=== PATIENT | female | born 2000 | race Caucasian/White ===

== ENCOUNTER 2021-05-07 08:58 | Emergency (ER) | payer OTHER ==
[2021-05-07 10:09] LABS: Absolute Lymphocytes (CBC) 2.6 K/uL (0.7-4.9); Basophils % 0.5 % (0-1.3); Hematocrit 39.7 % (36.0-45.0); Lymphocytes % 21.1 % (15.3-44.8); MPV 8.7 fL (7.6-11.3); RBC Red Blood Cell Count 4.62 M/uL (3.86-4.86)
[2021-05-07 10:14] LABS: Protime INR 1.06
[2021-05-07 10:20] LABS: ALT/SGPT 33 U/L (12-78); AST/SGOT 14 U/L (15-37); Albumin 4.2 g/dL (3.4-5.0); Alkaline Phosphatase 80 U/L (45-117); BUN Blood Urea Nitrogen 10 mg/dL (7-18); Bicarbonate 26 mmol/L (21-32); Bilirubin Direct 0.1 mg/dL (0-0.2); Bilirubin Total 0.4 mg/dL (0.2-1.0); Glucose Level 110 mg/dL (74-106); Potassium 4.1 mmol/L (3.5-5.1); Sodium Level 139 mmol/L (136-145)
[2021-05-07 11:52] LABS: Urine Blood 3+ (Negative); Urine Glucose Negative (Negative); Urine Protein Negative (Negative)
[2021-05-07 12:10] LABS: Barbiturates NEGATIVE (NEGATIVE); Benzodiazepines NEGATIVE (NEGATIVE); Cocaine NEGATIVE (NEGATIVE); METHAMPHETAM NEGATIVE (NEGATIVE); Methadone NEGATIVE (NEGATIVE); Opiates NEGATIVE (NEGATIVE); Phencyclidine NEGATIVE (NEGATIVE); THC Cannibis NEGATIVE (NEGATIVE)
--- NOTE | 2021-05-07 14:31 | ER ---
Nurse's Notes [facility] Name: Taya Abel Age: 20 yrs Sex: Female : 2000 Arrival Date: 05/07/2021 Time: 08:59 Bed 15 Private MD: Alec Dimas E Diagnosis: Mental disorder, not otherwise specified-psychosis Presentation: 05/07 09:24 Chief complaint: Patient states: Sent by Dr. Connolly, Psychiatrist for further evaluation of ss erratic behavior. Mother reports patient has been exhibiting odd behaviors such as hiding in closets and pacing for the past two weeks and states that medication is not working. Denies SI/HI. Coronavirus screen: Client denies travel out of the [place] in the last 14 days. Ebola Screen: Patient denies exposure to infectious person. Patient denies travel to an Ebola-affected area in the 21 days before illness onset. Initial Sepsis Screen: Does the patient meet any 2 criteria? No. Patient's initial sepsis screen is negative. Does the patient have a suspected source of infection? No. Patient's initial sepsis screen is negative. Risk Assessment: Do you want to hurt yourself or someone else? Patient reports no desire to harm self or others. Onset of symptoms is unknown. 09:24 Method Of Arrival: Ambulatory ss 09:24 Acuity: FRANCISCO J 2 ss Triage Assessment: 09:30 General: Appears distressed, obese, Behavior is cooperative, flat. Pain: Denies pain. bp EENT: No deficits noted. Neuro: Level of Consciousness is awake, alert, obeys commands, Oriented to PT NOT ANSWERING. Cardiovascular: Rhythm is sinus rhythm. Respiratory: No deficits noted. GI: No signs and/or symptoms were reported involving the gastrointestinal system. : No signs and/or symptoms were reported regarding the genitourinary system. Derm: No deficits noted. Musculoskeletal: No deficits noted. Historical: - Allergies: :33 NKDA; ss - Home Meds: :33 lithium carbonate 150 mg Oral cap 2 caps 3 times per day [Active]; atorvastatin oral ss [Active]; Seroquel Oral [Active]; Lisinopril Oral [Active]; - PMHx: 09:33 Bipolar disorder; ss - PSHx: 09:33 None; ss - Immunization history:: Adult Immunizations up to date. - Social history:: Smoking status: Patient denies any tobacco usage or history of. Screenin:05 Abuse screen: Denies threats or abuse. Denies injuries from another. Nutritional bp screening: No deficits noted. Tuberculosis screening: No symptoms or risk factors identified. Fall Risk None identified. Assessment: 09:30 General: SEE TRIAGE NOTE. bp 12:30 Reassessment: PT MEDICALLY CLEARED. PSYCH TRANSFER INITIATED. bp 14:06 Reassessment: No changes from previously documented assessment. Patient and/or family bp updated on plan of care and expected duration. Pain level reassessed. NURSE REPORT TO ROBERT MIMS FOR [facility]. 15:24 Reassessment: EMS AT B/S FOR TRANSPORT. bp Psych: 10:05 Plain Suicide Severity Screening: In the past month, have you wished you were bp or wished you could go to sleep and not wake up? Patient responds "No." "In the past month, have you actually had any thoughts of killing yourself?" Patient responds "no." "In your lifetime, have you ever done anything, started to do anything, or prepared to do anything to end your life?" Patient responds "no.". Subjective: Patient's mood is irritable. Objective: Patient is cooperative, Speech is absent, Affect is flat, Patient has mutilated themselves by SUPERFICIAL CUTS WITH RAZOR. Pt denies substance abuse. 15:25 Interventions:. Commitment: Patient will be a voluntary commitment. bp Vital Signs: 09:24 BP 112 / 92; Pulse 99; Resp 16; Temp 98.4; Pulse Ox 96% ; Height 5 ft. 4 in. (162.56 ss cm); Pain 0/10; 12:30 BP 122 / 85; Pulse 89; Resp 17; Pulse Ox 97% ; bp ED Course: 08:59 Patient arrived in ED. mr 08:59 Alec Dimas MD is Private Physician. mr 09:14 Dorothy Baez FNP-C is [facility]. kb 09:14 Franck Cook MD is Attending Physician. kb 09:16 Zachary Conte, FELICITA is Primary Nurse. bp 09:32 Triage completed. ss 09:33 Arm band placed on right wrist. ss 09:52 Initial lab(s) drawn, by me, sent to lab. Inserted saline lock: 20 gauge in right dh3 antecubital area, using aseptic technique. Blood collected. 10:00 EKG done, by ED staff, reviewed by Dorothy YO. 3 10:05 Patient has correct armband on for positive identification. Bed in low position. Call bp light in reach. Side rails up X2. Adult w/ patient. 11:37 faxed chart to [facility]. bd 13:26 faxed chart to [facility]. bd 13:37 spoke with Dorita at [facility], they have "no approriate beds at this bd time". 13:43 faxed chart to [facility]. bd 14:55 pt accepted in transfer to [facility] by Dr Jeffries, admin approval given by samara Sr. 15:24 No provider procedures requiring assistance completed. IV discontinued, intact, bp bleeding controlled, No redness/swelling at site. Pressure dressing applied. Administered Medications: No medications were administered Outcome: 14:30 ER care complete, transfer ordered by . kb 15:24 Transferred by ground EMS Note: [facility] bp 15:24 Condition: stable 15:24 Instructed on the need for transfer. 15:26 Patient left the ED. bp Signatures: Dorothy Baez, SRINATH GEOSCIENCE SPECIALIST-Ckb Mary Cavazos Javier, Beatris mr Sydney Marinelli, RN RN Shaniqua Gabriel [facility] Zachary Conte, RN RN Mikaela Christopher, RN RN vg1 Corrections: (The following items were deleted from the chart) 10:19 10:01 CORONAVIRUS+MR.LAB.CLARITAZ drawn and sent. vg1 EDMS
--- NOTE | 2021-05-07 14:31 | EDPHYS ---
Physician Documentation [facility] Name: Taya Abel Age: 20 yrs Sex: Female : 2000 Arrival Date: 05/07/2021 Time: 08:59 Bed 15 Private MD: Alec Dimas E ED Physician Franck Cook HPI: 05/07 09:36 This 20 yrs old Female presents to ER via Ambulatory with complaints of Psych kb Problem. 09:36 The patient presents to the emergency department with depression. Onset: The kb symptoms/episode began/occurred 2 week(s) ago. Past psychiatric history: Prior diagnosis: bipolar disorder, Psychiatric medications include: seroquel, lithium, Primary psychiatric physician: Dr. Palacios, the patient has a previous inpatient psychiatric history. Associated signs and symptoms: Pertinent positives; depression, erratic behavior,. Severity of symptoms: At their worst the symptoms were moderate severe in the emergency department the symptoms are unchanged. The patient has experienced similar episodes in the past, chronically. The patient has been recently seen by a physician: a psychiatrist, in the office, with similar presenting complaints, and was sent to the [facility] Emergency Department for further evaluation. Mother reports Dr Palacios sent pt here to have medical clearance and transfer to an inpatient psych facility for a mental breakdown. States pt has been acting erratically for 2 weeks and it has been worse over the past 2-3 days. States pt shaved part of her head, talks to herself, laughs uncontrollably at nothing then is a blank wall and won't talk or respond when spoken to. pt cut her leg and she believes pt is a danger to herself and her siblings. States pt has bipolar disorder and has been on multiple medications since the age of 13. Current medications are lithium and seroquel, but they aren't working anymore. . Historical: - Allergies: : NKDA; ss - Home Meds: : lithium carbonate 150 mg Oral cap 2 caps 3 times per day [Active]; atorvastatin oral ss [Active]; Seroquel Oral [Active]; Lisinopril Oral [Active]; - PMHx: :33 Bipolar disorder; ss - PSHx: :33 None; ss - Immunization history:: Adult Immunizations up to date. - Social history:: Smoking status: Patient denies any tobacco usage or history of. ROS: 09:41 Constitutional: Negative for fever, chills, and weight loss. kb 09:41 Psych: Positive for depression, insomnia. 09:41 All other systems are negative. Exam: 09:41 Constitutional: This is a well developed, well nourished patient who is awake, alert, kb and in no acute distress. Head/Face: Normocephalic, atraumatic. ENT: Moist Mucous membranes Cardiovascular: Regular rate and rhythm with a normal S1 and S2. No gallops, murmurs, or rubs. No pulse deficits. Respiratory: Respirations even and unlabored. No increased work of breathing, no retractions or nasal flaring. MS/ Extremity: Pulses equal, no cyanosis. Neurovascular intact. Full, normal range of motion. Neuro: Awake and alert, GCS 15, oriented to person, place, time, and situation. Moves all extremities. Normal gait. 09:41 Skin: injury, abrasion(s), small abrasion noted, of the right quadriceps. 09:41 Psych: Behavior/mood is cooperative, Affect is flat, Oriented to person, place, time, Patient has no thoughts/intents to harm self or others. 10:17 ECG was reviewed by the Attending Physician. kb Vital Signs: 09:24 BP 112 / 92; Pulse 99; Resp 16; Temp 98.4; Pulse Ox 96% ; Height 5 ft. 4 in. (162.56 ss cm); Pain 0/10; 12:30 BP 122 / 85; Pulse 89; Resp 17; Pulse Ox 97% ; bp MDM: 09:16 Patient medically screened. kb 09:31 Data reviewed: vital signs, nurses notes. Data interpreted: Pulse oximetry: on room air kb is 100 %. Interpretation: normal. Counseling: I had a detailed discussion with the patient and/or guardian regarding: the historical points, exam findings, and any diagnostic results supporting the discharge/admit diagnosis, lab results, the need to transfer to another facility. Physician consultation: Philip Don MD was contacted at 09:32, regarding consult, patient's condition, sent pt here to have medical clearance and transfer to inpatient psych facility. 09:45 ED course: Pt agrees to go to inpatient psych facility on voluntary basis. kb 14:24 ED course: Dr Jeffries at [facility] accepts pt for transfer. kb 05/07 09:21 Order name: Acetaminophen; Complete Time: 11:29 kb 05/07 09:21 Order name: Basic Metabolic Panel; Complete Time: 11:29 kb 05/07 09:21 Order name: CBC with Diff; Complete Time: 10:19 kb 05/07 09:21 Order name: ETOH Level; Complete Time: 10:19 kb 05/07 09:21 Order name: Hepatic Function; Complete Time: 11:29 kb 05/07 09:21 Order name: PT-INR; Complete Time: 10:19 kb 05/07 09:21 Order name: Ptt, Activated; Complete Time: 10:19 kb 05/07 09:21 Order name: Salicylate; Complete Time: 11:29 kb 05/07 09:21 Order name: Urine Drug Screen; Complete Time: 12:19 kb 05/07 09:21 Order name: EKG; Complete Time: 09:21 kb 05/07 11:12 Order name: SARS-COV-2 RT PCR; Complete Time: 11:13 EDMS 05/07 11:52 Order name: Urine Dipstick-Ancillary; Complete Time: 11:53 EDMS 05/07 12:25 Order name: Urine --Ancillary (enter results); Complete Time: 15:01 bd 05/07 09:21 Order name: EKG - Nurse/Tech; Complete Time: 09:56 kb 05/07 09:21 Order name: IV Saline Lock; Complete Time: 09:56 kb 05/07 09:21 Order name: Labs collected and sent; Complete Time: 09:56 kb 05/07 09:21 Order name: Urine Dipstick-Ancillary (obtain specimen); Complete Time: 12:51 kb 05/07 09:21 Order name: Urine Test (obtain specimen); Complete Time: 12:51 kb EC:17 Rate is 90 beats/min. Rhythm is regular. QRS [place] is Normal. DC interval is normal at kb 160 msec. QRS interval is normal at 88 msec. QT interval is normal at 342 msec. Administered Medications: No medications were administered Disposition: 16:19 Co-signature as Attending Physician, Franck Cook MD. rn Disposition Summary: 05/07/21 14:30 Transfer Ordered Transfer Location: Psych Facility kb Reason: Higher level of care kb Condition: Stable kb Problem: an acute exacerbation kb Symptoms: are unchanged kb Accepting Physician: Dr Jeffries(05/07/21 15:26) bp Diagnosis - Mental disorder, not otherwise specified - psychosis(05/07/21 14:30) kb Forms: - Medication Reconciliation Form kb - SBAR form kb Signatures: Dispatcher [employer] EDID Dorothy Baez, LOGISTICS TEAM LEAD-C LOGISTICS TEAM LEAD-Ckb Franck Cook MD MD rn Sydney Marinelli RN RN Zachary Guillen RN RN bp Corrections: (The following items were deleted from the chart) 10:19 09:59 CORONAVIRUS+MR.LAB.BRZ ordered. EDID EDMS 12:56 09:21 Suicide Precautions ordered. kb bp 12:57 09:21 Suicide Screening ([place]) ordered. kb bp 14:30 14:30 Dr Jeffries kb kb 14:30 14:30 Mental disorder, not otherwise specified kb kb 15:26 14:30 Dr Jeffries kb bp
[2021-05-07 15:32] VITALS: TEMP 98.4
[2021-05-07 15:33] VITALS: BP 122/85; O2SAT 97
--- NOTE | 2021-05-08 16:37 | EKG ---
Test Date: 2021-05-07 Test Time: 10:02:46 Geropsychologist: ALVAREZ MEASUREMENT RESULTS: Intervals: Rate: 90 SC: 160 QRSD: 88 QT: 342 QTc: 418 [place]: P: 49 SC: 160 QRS: -5 T: 34 INTERPRETIVE STATEMENTS: Normal sinus rhythm Possible Anterior infarct, age undetermined Abnormal ECG Compared to ECG 10/24/2014 17:27:33 Myocardial infarct finding now present Left-axis deviation no longer present Electronically Signed On 05-08-21 16:33:20 CDT by Carmelo Maldonado
== END 2021-05-07 15:26 ==
LOC: ER 08:58
DX: F99 Mental disorder, not otherwise specified (principal); F31.9 Bipolar disorder, unspecified; Z20.822 Contact with and (suspected) exposure to COVID-19
CPT/HCPCS: 93005; 85025; 80048; 36415; 80320; 80329 ×2; 81025; 85610; 80076; 85730; 81003; 80307; U0003; 99285